=== PATIENT | male | born 1965 | race Asian ===

== ENCOUNTER 2024-10-04 12:04 | Emergency (ER) | payer BC ==
[2024-10-04 12:13] VITALS: BP 112/68; PULSE 89; RESP 18; TEMP 99.2; BMI 27.4
[2024-10-04] MEDS ORDERED: LIDOCAINE 4% PATCH TP ONE (12:59)
[2024-10-04] MEDS ORDERED: ACETAMINOPHEN 500 MG TABLET (FP) ONE (13:00)
[2024-10-04] MEDS: ACETAMINOPHEN 500 MG TABLET (FP) PO ONE (13:10)
[2024-10-04] MEDS: LIDOCAINE 4% PATCH TP ONE (13:10)
[2024-10-04] MEDS ORDERED: LIDOCAINE PATCH REMOVAL MC ONE (22:00)
== END 2024-10-04 14:00 | disposition home or self-care (01) ==
LOC: JER 12:04
DX: M54.42 Lumbago with sciatica, left side (principal)
CPT/HCPCS: 99283-25